=== PATIENT | female | born 1940 | race Caucasian/White ===

== ENCOUNTER 2018-08-02 19:45 | Emergency (ER) | payer OTHER ==
[2018-08-02 20:01] VITALS: BP 165/88
--- NOTE | 2018-08-02 20:38 | EDPHY ---
H & P Time Seen by Provider: 08/02/18 20:17 HPI/ROS: HPI Left hip pain. Fall last night. 78-year-old female by private vehicle. She reports that she was walking up 1 stair yesterday evening when she tripped and fell forward. She presents to the emergency department tonight complaining of pain to the left lateral hip. She denies any other complaints. She did not hit her head. No loss of consciousness. No other extremity pain. ROS: Constitutional: No fever, no chills. No weakness. Respiratory: No cough. No shortness of breath. Cardiac: No chest pain, no palpitations. Gastrointestinal: No abdominal pain, no vomiting. Musculoskeletal: No back pain. No neck pain. As above. She denies other extremity pain. Skin: No lacerations or abrasions. Neurological: No headache. No focal weakness or altered sensation. Past medical history: Orthopedic injuries, breast cancer. Social history: She is here by herself. No alcohol. She does not smoke. Physical Exam: General Appearance: Alert, no distress. This patient is responding to questions appropriately and in full sentences. This patient appears well- hydrated and well-nourished. Head: Normocephalic atraumatic. Neurological: Motor sensory function is intact. Cranial nerves are normal. Cerebellar function intact. Skin: Warm and dry, no rashes. No lacerations, abrasions or contusions. Musculoskeletal: Neck is supple and nontender. The trachea is midline. No midline cervical, thoracic, lumbar or sacral tenderness on palpation. No flank tenderness on palpation. Examination of the left lower extremity significant for tenderness on palpation to lateral aspect of the hip area. No medial hip or groin tenderness on palpation. The left ankle, left knee joint range without any pain or impingement. The left knee is stable to valgus and varus stress testing and anterior and posterior drawer testing. No pain on axial compression involving the left ankle and left knee. She does have pain with flexion and extension both passively and actively to the lateral aspect of her left hip over the greater trochanter. Extremities are symmetrical, full range of motion except noted. All joints in the bilateral upper and bilateral lower extremities range without pain or impingement except noted. No tenderness on palpation of the long bones in the bilateral upper and bilateral lower extremities except noted. Psychiatric: No agitation. No depression. Database: EKG: Imaging: Left hip x-ray series: Negative for fracture, subluxation, dislocation. Interpreted by me. Procedures: Emergency department course: Triage vital signs reviewed. She is moderately hypertensive. Vital signs otherwise normal. After my evaluation she was sent for an x-ray of her left hip. 9:00 p.m., the patient was re-evaluated. She is resting comfortably at this time. Results of her x-rays were discussed with her. There is no evidence of a fracture. Her presentation is more consistent with a contusion and possibly muscle strain of the left lateral hip. She feels comfortable going home and I feel she is safe for discharge. She is able to ambulate without difficulty on her left hip. Follow-up through her primary care physician was discussed. Return to emergency department precautions reviewed. All of her questions were answered. She was discharged in good condition. Differential Diagnosis: The differential diagnosis on this patient includes but is not limited to left lateral hip contusion. Left hip fracture, dislocation, subluxation, other significant traumatic injury unlikely. This represents a partial list of diagnoses considered. These considerations are based on history, physical exam , past history, reassessment and diagnostic testing. Smoking Status: Never smoked Constitutional: Initial Vital Signs Temperature (C) 36.6 C 08/02/18 19:59 Heart Rate 85 08/02/18 19:59 Respiratory Rate 18 08/02/18 19:59 Blood Pressure 165/88 H 08/02/18 19:59 O2 Sat (%) 94 08/02/18 19:59 O2 Delivery Mode Room Air Allergies/Adverse Reactions: codeine Allergy (Verified 08/02/18 20:01) Home Medications: Medication Instructions Recorded Atorvastatin Calcium 08/02/18 Insulin Regular Human 08/02/18 Lipitor 08/02/18 Thyroid 08/02/18 Medical Decision Making - Diagnostics Imaging Results: Imaging Impressions Hip X-Ray 08/02/18 20:25 Impression: 1. No acute abnormality seen about the pelvis with attention left hip. Departure - Departure Disposition: Home, Routine, Self-Care Clinical Impression: Contusion of left hip Condition: Good Instructions: Hip Contusion (ED) Additional Instructions: Read and follow provided instructions. Follow-up with your primary care physician in 1-2 days for re-evaluation. You may require an MRI of your left hip for further evaluation. We do not have that capability here. Ibuprofen dosin mg every 6 hours with meals for the next 3 days only. Take only as needed for pain. Return to the emergency department for worsening pain or other serious concerns. Referrals: MD JULISA [Other] - As per Instructions
== END 2018-08-02 21:15 | disposition home or self-care (01) ==
LOC: CED 19:45
DX: S70.02XA Contusion of left hip, initial encounter (principal); W10.8XXA Fall (on) (from) other stairs and steps, initial encounter; Y99.8 Other external cause status; Z85.3 Personal history of malignant neoplasm of breast
CPT/HCPCS: 73502-PO